=== PATIENT | male | born 1965 | race Hispanic/Latino ===

== ENCOUNTER → 2019-09-28 | Outpatient (CLI) | payer OTHER | END | disposition home or self-care (01) | LOC: OIH 11:09 | PROVIDERS: ATTEND Family Medicine | DX: M17.11 Unilateral primary osteoarthritis, right knee (principal); M41.9 Scoliosis, unspecified; M47.896 Other spondylosis, lumbar region | CPT/HCPCS: 72100; 73560 ==

== ENCOUNTER 2020-01-23 16:34 | Emergency (ER) | payer OTHER ==
[2020-01-23 17:06] LABS: BASOPHILS % (AUTO) 0.6 % (0.0-5.0); EOSINOPHILS % (AUTO) 0.6 % (0.0-8.0); HEMATOCRIT 46.3 % (42-54); LYMPHOCYTES % (AUTO) 20.9 % (21.0-51.0); MEAN CORPUSCULAR HEMOGLOBIN 30.2 pg (27.0-33.0); MEAN CORPUSCULAR HGB CONC 33.5 g/dL (32.0-36.0); MEAN CORPUSCULAR VOLUME 90.3 fL (79-99); MONOCYTES % (AUTO) 10.1 % (3.0-13.0); NEUTROPHILS % (AUTO) 67.4 % (40.0-77.0); PLATELET COUNT (AUTO) 163 K/uL (130-400); RED BLOOD CELL COUNT(AUTO) 5.13 MIL/uL (4.50-6.20); RED CELL DISTRIBUTION WIDTH 12.9 % (11.0-15.5); WHITE BLOOD COUNT (AUTO) 8.3 K/uL (4.8-10.8)
[2020-01-23 17:19] LABS: INR 1.04 (0.85-1.15); PARTIAL THROMBOPLASTIN TIME 31.7 SEC (26.3-35.5); PROTHROMBIN TIME 10.9 SEC (9.6-11.6)
[2020-01-23 17:33] LABS: CREATININE 1.1 mg/dL (0.5-1.5); POTASSIUM 3.7 mmol/L (3.5-5.1)
[2020-01-23 17:40] LABS: ALBUMIN 3.5 g/dL (3.5-5.0); BILIRUBIN,TOTAL 0.5 mg/dL (0.2-1.0); TOTAL PROTEIN, SERUM 8.4 g/dL (6.0-8.3)
[2020-01-23 18:27] LABS: APPEARANCE,URINE Clear (CLEAR); BILIRUBIN,URINE Negative (NEGATIVE); COLOR,URINE Yellow (YELLOW); GLUCOSE, URINE (UA) Negative (NEGATIVE); KETONES,URINE Negative (NEGATIVE); LEUKOCYTE ESTERASE ,URINE Negative (NEGATIVE); NITRATE,URINE Negative (NEGATIVE); OCCULT BLOOD,URINE Moderate (NEGATIVE); PROTEIN,URINE Trace mg/dL (NEGATIVE)
[2020-01-23 18:34] LABS: AMPHET/METH SCREEN,URINE NEGATIVE (NEGATIVE); BARBITURATE SCREEN, URINE NEGATIVE (NEGATIVE); BENZODIAZEPINES SCREEN,URINE NEGATIVE (NEGATIVE); CANNABINOID SCREEN,URINE NEGATIVE (NEGATIVE); COCAINE SCREEN,URINE NEGATIVE (NEGATIVE); OPIATE SCREEN,URINE NEGATIVE (NEGATIVE); PHENCYCLIDINE SCREEN,URINE NEGATIVE (NEGATIVE)
[2020-01-23 18:44] LABS: BACTERIA,URINE None Seen /HPF (None Seen); SQUAMOUS EPITHELIAL CELL,UR 0-2 /HPF (0-2); WBC,URINE 0-1 /HPF (0-1)
== END 2020-01-23 18:41 | disposition home or self-care (01) ==
LOC: EDH 16:34
DX: I10 Essential (primary) hypertension (principal); E11.9 Type 2 diabetes mellitus without complications; Z88.1 Allergy status to other antibiotic agents
CPT/HCPCS: 36415; 71045; 80053; 80305; 81001; 82550; 83605; 83880; 84484; 85025; 85610; 85730; 87804; 93005

== ENCOUNTER → 2021-12-30 | Outpatient (CLI) | payer MEDICAID ==
[~2021-12-30] MED LIST: AMOX-429 PO; BENZ200C53 PO; LISI40TA9 PO
== END | disposition home or self-care (01) ==
LOC: SHCH 07:34
PROVIDERS: ATTEND Student in an Organized Health Care Education/Training Program
DX: I73.9 Peripheral vascular disease, unspecified (principal)
CPT/HCPCS: 93925

== ENCOUNTER 2022-02-08 20:11 | Emergency (ER) | payer MEDICAID ==
[~2022-02-08] VITALS: Ht 167.6 cm; Wt 84.4 kg
[2022-02-08 21:30] LABS: BASOPHILS % (AUTO) 0.7 % (0.0-5.0); MEAN CORPUSCULAR HEMOGLOBIN 29.6 pg (27.0-33.0); MEAN CORPUSCULAR HGB CONC 32.7 g/dL (32.0-36.0); MEAN CORPUSCULAR VOLUME 90.6 fL (79-99); MONOCYTES % (AUTO) 7.8 % (3.0-13.0); PLATELET COUNT (AUTO) 180 K/uL (130-400); RED BLOOD CELL COUNT(AUTO) 5.41 MIL/uL (4.50-6.20); RED CELL DISTRIBUTION WIDTH 13.2 % (11.0-15.5); WHITE BLOOD COUNT (AUTO) 10.2 K/uL (4.8-10.8)
[2022-02-08 21:42] LABS: CREATININE 0.9 mg/dL (0.5-1.5); POTASSIUM 3.9 mmol/L (3.5-5.1)
[2022-02-08 21:43] LABS: INR 1.06 (0.85-1.15); PROTHROMBIN TIME 11.5 SEC (9.6-11.6)
[2022-02-08 21:44] LABS: PARTIAL THROMBOPLASTIN TIME 37.1 SEC (26.3-35.5)
[2022-02-08 21:47] LABS: ALBUMIN 3.8 g/dL (3.5-5.0); BILIRUBIN,TOTAL 0.4 mg/dL (0.2-1.0); TOTAL PROTEIN, SERUM 8.8 g/dL (6.0-8.3)
[2022-02-08 21:59] LABS: B-TYPE NATRIURETIC PEPTIDE 18 pg/mL (0-100)
[2022-02-08] MEDS ORDERED: KETOROLAC 30MG VIAL (30MG/ML) ONE (23:07)
[2022-02-08 23:20] LABS: APPEARANCE,URINE Clear (CLEAR); BILIRUBIN,URINE Negative (NEGATIVE); COLOR,URINE Yellow (YELLOW); GLUCOSE, URINE (UA) Negative (NEGATIVE); KETONES,URINE Negative (NEGATIVE); LEUKOCYTE ESTERASE ,URINE Negative (NEGATIVE); NITRATE,URINE Negative (NEGATIVE); OCCULT BLOOD,URINE Nonhemolyzed Trace (NEGATIVE); PH,URINE 6.5 (5.0-8.0); PROTEIN,URINE Trace mg/dL (NEGATIVE)
[2022-02-08] MEDS ORDERED: KETOROLAC 30MG VIAL (30MG/ML) IV ONE (23:30)
[2022-02-08 23:31] LABS: BACTERIA,URINE Rare /HPF (None Seen); RBC,URINE 0-1 /HPF (0-1); SQUAMOUS EPITHELIAL CELL,UR 0-2 /HPF (0-2); WBC,URINE 0-1 /HPF (0-1)
[2022-02-09] VITALS: BP 162/104
[2022-02-09] MEDS ORDERED: DICL50TA9 PO (00:12)
== END 2022-02-09 00:26 | disposition home or self-care (01) ==
LOC: EDH 20:11
DX: K05.10 Chronic gingivitis, plaque induced (principal); B34.9 Viral infection, unspecified; Z20.822 Contact with and (suspected) exposure to COVID-19; I10 Essential (primary) hypertension; Z88.5 Allergy status to narcotic agent; Z79.899 Other long term (current) drug therapy
CPT/HCPCS: 36415; 71045; 80053; 81001; 83880; 84484; 85025; 85378; 85610; 85730; 87635; 87804 ×2; 93005; 96374; 99285; C9803; J1885

== ENCOUNTER 2022-04-08 20:59 | Emergency (ER) | payer MEDICAID ==
[~2022-04-08] VITALS: Ht 167.6 cm; Wt 83.5 kg
[~2022-04-08 20:59] MED LIST changes: +DICL50TA9 PO
[2022-04-08] MEDS ORDERED: HYDROCODONE/ACETAMINOPHEN 5/325 MG TAB PO ONE (22:00)
[2022-04-08 22:34] VITALS: BP 150/78
== END 2022-04-08 22:36 | disposition home or self-care (01) ==
LOC: EDH 20:59
DX: S02.5XXA Fracture of tooth (traumatic), initial encounter for closed fracture (principal); K05.10 Chronic gingivitis, plaque induced; K02.9 Dental caries, unspecified; I10 Essential (primary) hypertension; E11.9 Type 2 diabetes mellitus without complications; Z88.5 Allergy status to narcotic agent; Z79.899 Other long term (current) drug therapy; X58.XXXA Exposure to other specified factors, initial encounter; Y93.89 Activity, other specified; Y92.89 Other specified places as the place of occurrence of the external cause; Y99.8 Other external cause status

== ENCOUNTER → 2024-02-22 | Outpatient (CLI) | payer OTHER, MEDICARE ==
[2024-02-22 12:34] LABS: CREATININE 1.2 mg/dL (0.5-1.3); POTASSIUM 4.8 mmol/L (3.5-5.1)
== END | disposition home or self-care (01) ==
LOC: LAB 09:58
PROVIDERS: ATTEND Student in an Organized Health Care Education/Training Program
DX: R07.9 Chest pain, unspecified (principal)
CPT/HCPCS: 36415; 80048

== ENCOUNTER → 2024-03-01 | Outpatient (CLI) | payer OTHER, MEDICARE ==
[~2024-03-01] MED LIST changes: +IOHEXOL-350 75 ML VIAL IV ONE
== END | disposition home or self-care (01) ==
LOC: RAH 08:53
PROVIDERS: ATTEND Student in an Organized Health Care Education/Training Program
DX: G44.52 New daily persistent headache (NDPH) (principal)
CPT/HCPCS: 70496; 70498; Q9967

== ENCOUNTER → 2024-03-07 | Outpatient (CLI) | payer OTHER, MEDICARE ==
[~2024-03-07] MED LIST changes: +IOHEXOL 350 MG/ML 100ML INFUS..BTL IV ONE; -IOHEXOL-350 75 ML VIAL IV ONE; +METOPROLOL TARTRATE 1 MG/ML 5ML VIAL IV ONE
== END | disposition home or self-care (01) ==
LOC: RAH 09:16
PROVIDERS: ATTEND Student in an Organized Health Care Education/Training Program
DX: R07.9 Chest pain, unspecified (principal); M47.815 Spondylosis without myelopathy or radiculopathy, thoracolumbar region
CPT/HCPCS: 75574; J3490; Q9967

== ENCOUNTER 2024-12-22 13:56 | Emergency (ER) | payer OTHER, MEDICARE ==
[~2024-12-22] VITALS: Ht 167.6 cm; Wt 88.0 kg
[~2024-12-22 13:56] MED LIST changes: -IOHEXOL 350 MG/ML 100ML INFUS..BTL IV ONE; -METOPROLOL TARTRATE 1 MG/ML 5ML VIAL IV ONE
--- NOTE | 2024-12-22 14:04 | NUR ---
SEEN BY DR. STEINBERG AT TRIAGE
--- NOTE | 2024-12-22 14:14 | ERN ---
General Chief Complaint: Abdominal Pain Stated Complaint: WEAKNESS,STOMACH PAIN,AMS Time Seen by MD: 13:59 History of Present Illness Initial Comments 59-year-old male presents for abdominal pain or now. He reports that after eating he feels burning sensation in his abdomen. He was nauseous and bloated. No diarrhea. He feels weak and dizzy. He says getting worse and worse. He is currently being worked up by [facility], but he reports that he has not had any studies done regarding these symptoms. Denies surgical history. GI: [facility] Allergies: Coded Allergies: codeine (Unverified Adverse Reaction, Mild, NAUSEA/VOMITING, 12/22/24) Home Meds Active Scripts Diclofenac Sodium (Diclofenac Sodium) 50 Mg Tablet.dr, 50 MG PO TID for 10 Days, #30 TAB Prov:KYLIE OAKLEY MD 02/09/22 Amoxicillin/Potassium Clav (Augmentin 875-125 Tablet) 1 Each Tablet, 1 EACH PO Q12H, #10 TAB 0 Refills Prov:RAKESH MAIER AGNP 11/04/21 Reported Medications Benzonatate (Benzonatate) 200 Mg Capsule, 200 MG PO AD PRN for COUGH, CAP 11/02/21 Lisinopril (Lisinopril) 40 Mg Tablet, 40 MG PO HS, TAB 11/02/21 Past Medical History Past Medical History: Diabetes-Type II, Heart Disease, Hypertension Past Surgical History: None Family History Family History: Negative Social History Social History: Negative, Lives with family ROS Dictation CONSTITUTIONAL: No chills, no fever, no weakness, no diaphoresis, no malaise. HEAD/FACE: No signs of trauma. EENT: No eye pain, no blurred vision, no tearing, no double vision, no ear pain, no ear discharge, no nose pain, no nasal congestion, no throat pain, no throat swelling, no mouth pain. RESPIRATORY: No cough, no orthopnea, no SOB, no stridor, no wheezing. CARDIOVASCULAR: No chest pain, no edema, no palpitations, no syncope. GASTROINTESTINAL/ABDOMINAL: Abdominal pain after eating GENITOURINARY: No abnormal discharge, no dysuria, no frequent urination, no hematuria. No complaints of pain in the genitals. MUSCULOSKELETAL: No back pain, no gout, no joint pain, no joint swelling, no muscle pain, no muscle stiffness, no neck pain. INTEGUMENTARY: No change in color, no change in hair/nails, no dryness, no lesion, no lumps, no rash. NEUROLOGICAL/PSYCH: No anxiety, not depressed, no emotional problem, no headache, no numbness, no pre-existing deficit, no history of seizures, no tremors, no weakness. HEMATOLOGIC/LYMPHATIC: Not anemic, no history of blood clots, no apparent bleeding, no bruising, glands not swollen. All Systems Negative, Except as Noted. Physical Exam Physical Exam Dictation VITAL SIGNS: Reviewed. GENERAL APPEARANCE: Alert, oriented x3, no acute distress. HEAD AND FACE: Non-traumatic. EYES: PERRL, pink conjunctivas, eyelid no trauma, anterior chamber clear. EARS: Pinnas intact and no signs of trauma or erythema. Ear canals clear and no discharge. TMs no erythema. NOSE: No discharge, no bleeding. OROPHARYNX: Mouth normal, teeth no caries, tongue pink. Pharynx clear, no erythema. Tonsils no exudates, no abscesses noted. Mucous membrane moist. NECK: Supple, non-tender, no thyromegaly, no masses, no JVD, no bruits. BREAST: Deferred. CHEST: No tenderness, no crepitus, no paradoxical movement, no retractions. LUNGS: Clear, well-ventilated, symmetric, no rales, no wheezing, no rhonchi, no stridor, good breath sounds bilaterally. HEART: Regular rate, regular rhythm, no murmur, no gallops. VASCULAR: No peripheral edema. ABDOMEN: Soft, positive bowel sounds, nondistended, no guarding, nontender, no rebound, no masses no hepatomegaly, no splenomegaly, no Stewart's sign, no hernias. RECTAL: Deferred. GENITAL: Deferred. NEUROLOGICAL: Normal speech, gross motor function intact, gross sensory function intact. MUSCULOSKELETAL: Neck nontender, full range of motion, back nontender, full range of motion. EXTREMITIES: Nontender, full range of motion. SKIN: Color pink, dry, no turgor, no rash, no lacerations, no abrasions, no contusions. LYMPHATICS: Deferred. Results Laboratory and Microbiology Lab and Micro Result Laboratory Tests Test 12/22/24 14:30 12/22/24 14:37 White Blood Count 6.8 K/uL (4.8-10.8) Red Blood Count 5.39 MIL/uL (4.50-6.20) Hemoglobin 16.7 g/dL (14.0-18.0) Hematocrit 49.6 % (42-54) Mean Corpuscular Volume 92.0 fL (79-99) Mean Corpuscular Hemoglobin 31.0 pg (27.0-33.0) Mean Corpuscular Hemoglobin Concent 33.7 g/dL (32.0-36.0) Red Cell Distribution Width 13.0 % (11.0-15.5) Platelet Count 187 K/uL (130-400) Mean Platelet Volume 10.6 fL (7.5-10.5) H Immature Granulocyte % (Auto) 0.1 % (0-1) Neutrophils (%) (Auto) 40.6 % (40.0-77.0) Lymphocytes (%) (Auto) 41.3 % (21.0-51.0) Monocytes (%) (Auto) 15.2 % (3.0-13.0) H Eosinophils (%) (Auto) 1.6 % (0.0-8.0) Basophils (%) (Auto) 1.2 % (0.0-5.0) Neutrophils # (Auto) 2.8 K/uL (1.8-7.7) Lymphocytes # (Auto) 2.8 K/uL (1.0-4.8) Monocytes # (Auto) 1.0 K/uL (0.1-1.0) Eosinophils # (Auto) 0.11 K/uL (0.00-0.70) Basophils # (Auto) 0.08 K/uL (0.00-0.20) Absolute Immature Granulocyte (auto 0.01 K/uL (0-1) Nucleated Red Blood Cells 0.0 % (0.0-0.19) White Cell Morphology Comment See comments Sodium Level 140 mmol/L (136-145) Potassium Level 4.7 mmol/L (3.5-5.1) Chloride Level 105 mmol/L (101-111) Carbon Dioxide Level 31 mmol/L (21-32) Blood Urea Nitrogen 12 mg/dL (7-18) Creatinine 1.1 mg/dL (0.5-1.3) Glomerular Filtration Rate Calc 77 mL/min (>90) Random Glucose 91 mg/dL (70-105) Total Calcium 9.3 mg/dL (8.5-10.1) Total Bilirubin 0.5 mg/dL (0.2-1.0) Direct Bilirubin 0.1 mg/dL (0.0-0.3) Aspartate Amino Transf (AST/SGOT) 40 U/L (10-37) H Alanine Aminotransferase (ALT/SGPT) 52 U/L (12-78) Alkaline Phosphatase 124 U/L (50-136) Troponin I High Sensitivity 34 ng/L (4-75) Total Protein 8.7 g/dL (6.0-8.3) H Albumin 3.6 g/dL (3.5-5.0) Lipase 57 U/L (16-77) Urine Color COLORLESS (YELLOW) Urine Appearance CLEAR (CLEAR) Urine pH 7.0 (5.0-8.0) Urine Specific [place] 1.006 (1.001-1.031) Urine Protein NEGATIVE mg/dL (NEGATIVE) Urine Glucose (UA) 70 mg/dL (NEGATIVE) H Urine Ketones NEGATIVE mg/dL (NEGATIVE) Urine Occult Blood NEGATIVE (NEGATIVE) Urine Nitrate NEGATIVE (NEGATIVE) Urine Bilirubin NEGATIVE mg/dL (NEGATIVE) Urine Urobilinogen 0.2 mg/dL (0.2-1.0) Urine Leukocyte Esterase NEGATIVE Katie/uL Urine RBC None /HPF (0-1) Urine WBC None /HPF (0-1) Urine Bacteria None /HPF (None Seen) MDM CC: abd pain after eating x 1 year Historian: patient Comorbidities: DM, HTN, CAD Limitations by social determinants of health: None Vital signs: Hypertension, otherwise stable Differential diagnosis: Gastritis, PUD, cancer, biliary disease, other Labs (independently ordered and interpreted by me): CBC is normal. BMP normal. Liver function normal. Troponin normal. Lipase normal. Protein and albumin normal. Urinalysis shows 70 glucose otherwise unremarkable. Right upper quadrant ultrasound (independently interpreted by me): No obvious stones. CBD and measurements are within normal limits. There is some mild fatty liver. CXR (independently interpreted by me): No focal infiltrates or obvious abnormalities. CT abdomen & pelvis with contrast (independently interpreted by me): No free air, no acute abnormalities. Treatment in ED: 1 L normal saline, Maalox, dicyclomine oral. Re-evaluation. Pain controlled. Patient does not have any current surgical pathology. There is no signs of biliary disease, SIRS, sepsis, dehydration, or any other abnormalities. Stable vital signs and normal labs with normal imaging including an ultrasound and a CT scan. This point in time I think patient was safe for discharge. Patient symptoms are likely related to peptic ulcer disease or gastritis. I will give him a prescription for Protonix and Maalox to use as needed. We will recommend diet modification. He already has follow up as an outpatient with a GI doctor. We will recommend he keeps these appointments. REASON: Adominal Pain ORDERING PHYSICIAN: KILLIAN STEINBERG DO PROCEDURE: ABDRUQLTD - US ABDOMINAL RUQ\LTD US ABDOMINAL RUQ\E\LTD HISTORY: Adominal Pain COMPARISON: None FINDINGS: There is mild fatty infiltration of the liver. There are no focal liver masses. There is mildly enlarged at 17 cm.There is a normal-appearing gallbladder. Common duct is normal. There is a 2.6 cm right renal cyst. Right kidney is otherwise normal with no evidence of mass, hydronephrosis or stone.The pancreas appears normal as well. Portal vein is patent with a normal direction of flow. IMPRESSION: 1. Mild hepatic steatosis, the liver is mildly enlarged as well. REASON: epigastric pain ORDERING PHYSICIAN: KILLIAN STEINBERG DO PROCEDURE: CXR1VW - CHEST 1VW CHEST 1VW REASON: epigastric pain COMPARISON: 02/08/2022 FINDINGS: Single view of the chest was obtained. Lungs are clear. Heart size is normal. There is no pulmonary vascular congestion. Mediastinum and bony thorax appear unremarkable. IMPRESSION: 1. Normal single view chest x-ray. REASON: epigastric pain ORDERING PHYSICIAN: KILLIAN STEINBERG DO PROCEDURE: ABD PEL W - CT ABDOMEN/PELVIS W/CONTRAST Exam Type: CT ABDOMEN/PELVIS W/CONTRAST Clinical Information: epigastric pain Comparison: None Contrast: 100 cc's Isovue 370 IV, no complications or adverse reactions CT Dose Index (CTDI): 31.60 mGy Dose Length Product (DLP): 1740.80 total mGy-cm Findings: No evidence of nephro or ureterolithiasis is found. No hydronephrosis or ureteral dilatation is seen. The lung bases are clear. The stomach is unremarkable. It shows no wall thickening. No gross ulceration is seen. It is not overly distended. There are no surrounding inflammatory changes. No wall lesions are identified to suggest cancer. The spleen is unremarkable. It is not enlarged. The pancreas shows normal anatomy. It is not fatty replaced. It shows no lesions. The pancreatic duct is not dilated. The gallbladder is unremarkable. It shows no cholelithiasis. The gallbladder wall is normal in thickness. There is no pericholecystic fluid. The is no acute or chronic inflammation noted. The adrenal glands are unremarkable. There is no enlargement. No lesions are noted. The liver is unremarkable. It shows no focal masses. The appendix is unremarkable. It shows no evidence of inflammation. No appendicolith is seen. The small bowel is unremarkable. There is no evidence of dilatation to suggest obstruction. No evidence of adynamic ileus is seen. There is no small bowel wall thickening to suggest enteritis. There is diverticulosis. There is no evidence of acute inflammation to suggest diverticulitis. The colon is otherwise unremarkable. The urinary bladder is unremarkable. There is no wall thickening to suggest tumor or inflammation. There are no intraluminal calculi. There are no diverticula. There is no evidence of chronic bladder outlet obstruction. There is no evidence of urinary bladder distention to suggest urinary retention. The other pelvic structures are unremarkable. The bony and vascular structures are unremarkable for the patient's age. IMPRESSION: No acute pathology. ED Course Orders Procedure Category Date Status Time Cbc With Differential LAB 12/22/24 Complete 14:04 Troponin I High LAB 12/22/24 Complete Sensitivity 14:04 Urinalysis Profile LAB 12/22/24 Complete 14:04 Ct Abdomen/Pelvis CT 12/22/24 Resulted W/Contrast 14:04 Us Abdominal Ruq\Ltd US 12/22/24 Resulted 14:04 Chest 1vw RAD 12/22/24 Resulted 14:04 Lipase LAB 12/22/24 Complete 14:04 Basic Metabolic Panel LAB 12/22/24 Complete 14:04 Hepatic Function Panel LAB 12/22/24 Complete 14:04 Mag/Alum/Simeth 30ml PHA 12/22/24 Complete (Maalox Plus 30ml) 14:30 Dicyclomine Hcl PHA 12/22/24 Complete (Bentyl 20mg Tab) 14:30 0.9%Nacl 1000ml (Ns PHA 12/22/24 Complete 1000ml) 14:30 Iohexol (Omnipaque) PHA 12/22/24 Complete 18:04 Current Medications Medications (Trade) Dose Ordered Sig/Olamide Route PRN Reason Start Time Stop Time Status Last Admin Dose Admin Al Hydroxide/Mg Hydroxide (MAALox PLUS 30ML) 30 ml ONCE ONCE PO 12/22/24 14:30 12/22/24 14:31 DC 12/22/24 18:28 Dicyclomine HCl (Bentyl 20mg Tab) 20 mg ONCE ONCE PO 12/22/24 14:30 12/22/24 14:31 DC 12/22/24 18:29 Iohexol (Omnipaque) 75 ml STK-MED ONCE IV 12/22/24 18:04 12/22/24 18:04 DC Sodium Chloride 1,000 ml @ 0 mls/hr ONCE ONCE IV 12/22/24 14:30 12/22/24 14:31 DC 12/22/24 18:28 Vital Signs Date Time Temp Pulse Resp B/P (MAP) Pulse Ox O2 Delivery O2 Flow Rate FiO2 12/22/24 18:04 98.1 63 18 145/95 99 Room Air* 0 21 12/22/24 13:59 98.4 84 16 166/113 97 Room Air DX & DISP Disposition: Discharge Departure Impression: Primary Impression: Gastritis Condition: Stable Scripts Mag Hydrox/Al Hydrox/Simeth (Maalox Maximum Strength Susp) 400 Mg-400 Mg-40 Mg/5 Ml Oral.susp 20 ML PO Q6H for indegestion for 5 Days, #355 ML 0 Refills Prov: KILLIAN STEINBERG DO 12/22/24 Famotidine (Famotidine) 20 Mg Tablet 1 TAB PO BID for 30 Days, #60 TAB 0 Refills Prov: KILLIAN STEINBERG DO 12/22/24 Pantoprazole Sodium (Pantoprazole Sodium) 20 Mg Tablet.dr 1 TAB PO DAILY for 30 Days, #30 TAB 0 Refills Prov: KILLIAN STEINBERG DO 12/22/24 Additional Instructions: Your symptoms are consistent with gastritis, which is inflammation of the stomach lining. This can be caused by certain infections, excessive acid production, medications such as NSAIDs, alcohol, smoking, or stress. Your vital signs have been stable in the ER. Your blood work (CBC, BMP, liver function tests, troponin, lipase, urinalysis) is unremarkable. The CT scan of your abdomen and pelvis is unremarkable. The ultrasound does show a fatty liver but is otherwise unremarkable. This is unlikely related to your symptoms. Your chest x-ray is normal. I have prescribed pantoprazole and famotidine. Take both of these medications daily as prescribed. Avoid NSAIDs such as ibuprofen, naproxen, and aspirin. Use Tylenol based medic ations as needed. I have prescribed maximum strength Maalox. Use as needed for symptom relief. You need to tightly manage your diet. Eat small, frequent meals rather than large meals. Avoid spicy, acidic, fried, fatty foods that can worsen your symptoms. Limit or avoid alcohol and coffee. Drink plenty of water. Avoid smoking, reduce stress. Elevate head of your bed at night when experiencing symptoms. Continue your outpatient workup with your learning development specialist. Please bring the ultrasound and CT scan results with you to your next appointment. Please return to the emergency department if you have severe persistent abdominal pain, vomit blood, dark tarry stools, persistent nausea or vomiting, or any signs of dehydration. Referrals: MICHAEL MCCARTNEY PA-C (PCP) KILLIAN STEINBERG DO Dec 22, 2024 14:14
--- NOTE | 2024-12-22 14:40 | HMCIMG ---
CHEST 1VW REASON: epigastric pain COMPARISON: 02/08/2022 FINDINGS: Single view of the chest was obtained. Lungs are clear. Heart size is normal. There is no pulmonary vascular congestion. Mediastinum and bony thorax appear unremarkable. IMPRESSION: 1. Normal single view chest x-ray.
[2024-12-22 14:57] LABS: APPEARANCE,URINE CLEAR (CLEAR); BILIRUBIN,URINE NEGATIVE (NEGATIVE); COLOR,URINE COLORLESS (YELLOW); GLUCOSE, URINE (UA) 70 mg/dL (NEGATIVE); KETONES,URINE NEGATIVE (NEGATIVE); LEUKOCYTE ESTERASE ,URINE NEGATIVE Leu/uL (NEGATIVE); NITRATE,URINE NEGATIVE (NEGATIVE); OCCULT BLOOD,URINE NEGATIVE (NEGATIVE); PROTEIN,URINE NEGATIVE (NEGATIVE); UROBILINOGEN,URINE 0.2 mg/dL (0.2-1.0)
[2024-12-22 14:58] LABS: ADD UA MICROSCOPIC YES
[2024-12-22 14:58] LABS: BASOPHILS # (AUTO) 0.08 K/uL (0.00-0.20); BASOPHILS % (AUTO) 1.2 % (0.0-5.0); EOSINOPHILS # (AUTO) 0.11 K/uL (0.00-0.70); EOSINOPHILS % (AUTO) 1.6 % (0.0-8.0); HEMATOCRIT 49.6 % (42-54); IMMATURE GRANULOCYTE ABSOLUTE 0.01 K/uL (0-1); LYMPHOCYTES # (AUTO) 2.8 K/uL (1.0-4.8); LYMPHOCYTES % (AUTO) 41.3 % (21.0-51.0); MEAN CORPUSCULAR HGB CONC 33.7 g/dL (32.0-36.0); MONOCYTES % (AUTO) 15.2 % (3.0-13.0); NEUTROPHILS # (AUTO) 2.8 K/uL (1.8-7.7); NEUTROPHILS % (AUTO) 40.6 % (40.0-77.0); PLATELET COUNT (AUTO) 187 K/uL (130-400); RED BLOOD CELL COUNT(AUTO) 5.39 MIL/uL (4.50-6.20); WHITE BLOOD COUNT (AUTO) 6.8 K/uL (4.8-10.8)
--- NOTE | 2024-12-22 15:01 | HMCIMG ---
US ABDOMINAL RUQ\E\LTD HISTORY: Adominal Pain COMPARISON: None FINDINGS: There is mild fatty infiltration of the liver. There are no focal liver masses. There is mildly enlarged at 17 cm.There is a normal-appearing gallbladder. Common duct is normal. There is a 2.6 cm right renal cyst. Right kidney is otherwise normal with no evidence of mass, hydronephrosis or stone.The pancreas appears normal as well. Portal vein is patent with a normal direction of flow. IMPRESSION: 1. Mild hepatic steatosis, the liver is mildly enlarged as well.
[2024-12-22 15:05] LABS: CREATININE 1.1 mg/dL (0.5-1.3); POTASSIUM 4.7 mmol/L (3.5-5.1)
[2024-12-22 15:08] LABS: ALBUMIN 3.6 g/dL (3.5-5.0); BILIRUBIN,DIRECT 0.1 mg/dL (0.0-0.3); BILIRUBIN,TOTAL 0.5 mg/dL (0.2-1.0); TOTAL PROTEIN, SERUM 8.7 g/dL (6.0-8.3)
--- NOTE | 2024-12-22 17:50 | NUR ---
PT MOVED FROM [facility] ASSIGNED TO [facility] BED A AT THIS TIME. ASSUMED CARE AT THIS TIME
[2024-12-22] MEDS ORDERED: IOHEXOL-350 75 ML VIAL IV ONE (18:04)
[2024-12-22] MEDS: MAG/ALUM/SIMETH 30 ML UDCUP PO ONE (18:28)
[2024-12-22] MEDS: 0.9%NACL 1000ML 1,000 ML IV ONE (18:28)
[2024-12-22] MEDS: DICYCLOMINE HCL 20 MG TAB PO ONE (18:29)
--- NOTE | 2024-12-22 18:29 | HMCIMG ---
Exam Type: CT ABDOMEN/PELVIS W/CONTRAST Clinical Information: epigastric pain Comparison: None Contrast: 100 cc's Isovue 370 IV, no complications or adverse reactions CT Dose Index (CTDI): 31.60 mGy Dose Length Product (DLP): 1740.80 total mGy-cm Findings: No evidence of nephro or ureterolithiasis is found. No hydronephrosis or ureteral dilatation is seen. The lung bases are clear. The stomach is unremarkable. It shows no wall thickening. No gross ulceration is seen. It is not overly distended. There are no surrounding inflammatory changes. No wall lesions are identified to suggest cancer. The spleen is unremarkable. It is not enlarged. The pancreas shows normal anatomy. It is not fatty replaced. It shows no lesions. The pancreatic duct is not dilated. The gallbladder is unremarkable. It shows no cholelithiasis. The gallbladder wall is normal in thickness. There is no pericholecystic fluid. The is no acute or chronic inflammation noted. The adrenal glands are unremarkable. There is no enlargement. No lesions are noted. The liver is unremarkable. It shows no focal masses. The appendix is unremarkable. It shows no evidence of inflammation. No appendicolith is seen. The small bowel is unremarkable. There is no evidence of dilatation to suggest obstruction. No evidence of adynamic ileus is seen. There is no small bowel wall thickening to suggest enteritis. There is diverticulosis. There is no evidence of acute inflammation to suggest diverticulitis. The colon is otherwise unremarkable. The urinary bladder is unremarkable. There is no wall thickening to suggest tumor or inflammation. There are no intraluminal calculi. There are no diverticula. There is no evidence of chronic bladder outlet obstruction. There is no evidence of urinary bladder distention to suggest urinary retention. The other pelvic structures are unremarkable. The bony and vascular structures are unremarkable for the patient's age. IMPRESSION: No acute pathology. This study was performed using dose reduction techniques to include automated exposure control and/or adjustment of the mA and/or kV according to patient size.
[2024-12-22] MEDS ORDERED: FAMO20TA8 PO (19:00)
[2024-12-22] MEDS ORDERED: PANT20TA18 PO (19:00)
[2024-12-22] MEDS ORDERED: MAG-55 PO (19:00)
[2024-12-22 19:30] VITALS: BP 139/87; PULSE 62; RESP 18; TEMP 98.1; O2SAT 97
== END 2024-12-22 19:41 | disposition home or self-care (01) ==
LOC: EDH 13:56
DX: K29.70 Gastritis, unspecified, without bleeding (principal); E11.9 Type 2 diabetes mellitus without complications; I10 Essential (primary) hypertension; Z88.5 Allergy status to narcotic agent
CPT/HCPCS: 99285; 74177; 96360; 76705; 71045; 80076; 84484; 80048; 83690; 85025; 81001; 36415; J7030; Q9967